=== PATIENT | female | born 1935 | race Caucasian/White ===

== ENCOUNTER 2016-08-14 11:35 | Emergency (ER) | payer MEDICARE, BC ==
--- NOTE | ~2016-08-14 | CT2 ---
[facility] A Service of [facility] RADIOLOGY TEXT RESULTS PATIENT: EMILY CARROLL LOCATION: [facility] : 34 UNIT #: [id number] AGE: [address]: Vianca Zuleta MD SEX: F ORDER DR: [id number] [facility] [address] [place], [place] [address] [id number] E MR#: [id number] Acc #: [id number] NAME: EMILY CARROLL. : 1935 SEX: F STUDY DATE/TIME: 08/14/2016 12:57 UNIT: [facility] ROOM: STUDY DESCRIPTION: CT Abd and Pelv W Cont Attending Physician: Vianca Zuleta M.D. Ordering Physician: Vianca Zuleta M.D. Primary Care Physician: Patrice Reinoso M.D. MEDICAL IMAGING REPORT This report is preliminary unless electronic signature is present EXAM CT abdomen and pelvis with contrast, 08/14/2016 INDICATIONS Fell at home. Head laceration. Nausea, vomiting, abdominal pain. TECHNIQUE CT of the abdomen and pelvis (utilizing 100 mL Isovue-370 IV contrast). Coronal and sagittal reconstructions were obtained. This CT exam was performed with one or more of the following radiation dose reduction techniques: Automatic exposure control, adjustment of mA and/or kV according to patient size, and iterative reconstruction. COMPARISON CT abdomen and pelvis dated 06/29/2011. FINDINGS ABDOMEN: There is a geographic area of hyperattenuation in the subcapsular region of the left hepatic lobe. This is predominantly in the lateral segment, left hepatic lobe. This likely represents a perfusional variant/shunt. No discrete mass is identified. Gallbladder is not distended. Pancreas is atrophic. The spleen, adrenal glands and kidneys are within normal limits. The bowel is not dilated. There is a small hiatal hernia. There are some colonic and small bowel diverticula. No diverticulitis. PELVIS: No pelvic mass. The bladder is unremarkable. No enlarged pelvic or inguinal lymph nodes. No acute osseous abnormalities. [facility] A Service of [facility] RADIOLOGY TEXT RESULTS PATIENT: EMILY CARROLL LOCATION: [facility] : 34 UNIT #: [id number] AGE: [address]: Vianca Zuleta MD SEX: F ORDER DR: IMPRESSION 1. No acute traumatic findings in the abdomen and pelvis. 2. Geographic area of hypervascularity in the left hepatic lobe. This is a psa-yvxh-uvud area which probably represents either some peripheral vascular shunting or transient hepatic attenuation difference (LETY). 3. Colonic diverticulosis and small bowel diverticulosis. Dictated by... Ramone Malik M.D. THIS IS AN ELECTRONICALLY VERIFIED REPORT Ramone Malik M.D. at 08/15/2016 2:13 PM RPC/lupe TD: 08/14/2016 19:25 JOB #: [id number] MEDICAL IMAGING REPORT Page 1 of 1 COPY
--- NOTE | ~2016-08-14 | CT52 ---
[facility] A Service of [facility] RADIOLOGY TEXT RESULTS PATIENT: EMILY CARROLL LOCATION: [facility] : 34 UNIT #: [id number] AGE: [address]: Vianca Zuleta MD SEX: F ORDER DR: [id number] [facility] [address] [place], [place] [address] [id number] E MR#: [id number] Acc #: [id number] NAME: EMILY CARROLL. : 1935 SEX: F STUDY DATE/TIME: 08/14/2016 12:49 UNIT: [facility] ROOM: STUDY DESCRIPTION: CT Cervical Spine Wo Cont Attending Physician: Vianca Zuleta M.D. Ordering Physician: Vianca Zuleta M.D. Primary Care Physician: Patrice Reinoso M.D. MEDICAL IMAGING REPORT This report is preliminary unless electronic signature is present EXAM CT cervical spine without contrast, 08/14/2016 INDICATIONS Fall at home. Laceration to the head. Neck pain. TECHNIQUE CT of the cervical spine without contrast. Coronal and sagittal reconstructions were obtained. This CT exam was performed with one or more of the following radiation dose reduction techniques: Automatic exposure control, adjustment of mA and/or kV according to patient size, and iterative reconstruction. COMPARISON CT cervical spine dated 03/27/2014. FINDINGS There is a oblique fracture through the base of the C2 vertebra. The fracture is nondisplaced. The fracture extends into the C2-3 intervertebral disc space. No additional fractures are identified. There is multilevel degenerative changes consisting of disc space narrowing, osteophyte formation, and facet arthropathy. There are a few anterior osteophytes associated with the C4 and C5 endplates, which are unchanged. IMPRESSION 1. Nondisplaced fracture through the base of the C2 vertebra extending into the C2-3 disc space. 2. Multilevel degenerative changes throughout the cervical spine. [facility] A Service of [facility] RADIOLOGY TEXT RESULTS PATIENT: EMILY CARROLL LOCATION: [facility] : 34 UNIT #: [id number] AGE: [address]: Vianca Zuleta MD SEX: F ORDER DR: Dictated by... Ramone Malik M.D. THIS IS AN ELECTRONICALLY VERIFIED REPORT Ramone Malik M.D. at 08/15/2016 2:13 PM RPC/psc TD: 08/14/2016 19:22 JOB #: [id number] MEDICAL IMAGING REPORT Page 1 of 1 COPY
--- NOTE | ~2016-08-14 | CR243 ---
[facility] A Service of [facility] RADIOLOGY TEXT RESULTS PATIENT: EMILY CARROLL LOCATION: [facility] : 34 UNIT #: [id number] AGE: [address]: Vianca Zuleta MD SEX: F ORDER DR: [id number] [facility] [address] [place], [place] [address] [id number] E MR#: [id number] Acc #: [id number] NAME: EMILY CARROLL. : 1935 SEX: F STUDY DATE/TIME: 08/14/2016 12:29 UNIT: [facility] ROOM: STUDY DESCRIPTION: CR Thoracic Spine 3 Views Attending Physician: Vianca Zuleta M.D. Ordering Physician: Vianca Zuleta M.D. Primary Care Physician: Patrice Reinoso M.D. MEDICAL IMAGING REPORT This report is preliminary unless electronic signature is present EXAM Thoracic spine radiographs INDICATIONS Fall. Back pain. TECHNIQUE/COMPARISON 3 views of the thoracic spine without comparison FINDINGS There is no acute fracture or subluxation. Vertebral body height is normal. There is mild dextroscoliosis. IMPRESSION No acute findings. Dictated by... Ramone Malik M.D. THIS IS AN ELECTRONICALLY VERIFIED REPORT Ramone Malik M.D. at 08/15/2016 2:09 PM [facility]/cindi TD: 08/14/2016 19:15 JOB #: [id number] MEDICAL IMAGING REPORT Page 1 of 1 COPY
--- NOTE | ~2016-08-14 | CT71 ---
[facility] A Service of [facility] RADIOLOGY TEXT RESULTS PATIENT: EMILY CARROLL LOCATION: [facility] : 34 UNIT #: [id number] AGE: [address]: Vianca Zuleta MD SEX: F ORDER DR: [id number] [facility] [address] [place] [address] [place], [place] [address] [id number] E MR#: [id number] Acc #: [id number] NAME: EMILY CARROLL. : 1935 SEX: F STUDY DATE/TIME: 08/14/2016 12:47 UNIT: [facility] ROOM: STUDY DESCRIPTION: CT Head Wo Contrast Attending Physician: Vianca Zuleta M.D. Ordering Physician: Vianca Zuleta M.D. Primary Care Physician: Patrice Reinoso M.D. MEDICAL IMAGING REPORT This report is preliminary unless electronic signature is present EXAM CT head INDICATIONS Fall at home. Laceration of the head. Headache. TECHNIQUE CT head without contrast. This CT exam was performed with one or more of the following radiation dose reduction techniques: automatic exposure control, adjustment of mA and/or kV according to patient size, and iterative reconstruction. COMPARISON CT head dated 03/27/2014 FINDINGS There is no acute intracranial hemorrhage, mass lesion, or acute infarct. Chong matter differentiation is within normal limits. The ventricles and basilar cisterns are normal in size and configuration. No extraaxial collections. There is a scalp hematoma over the frontal convexity. No foreign body or fracture is identified. There is irregularity of the nasal bones. This was present on the prior 2013 exam and is felt to represent changes from prior nasal bone fracture. Visualized paranasal sinuses and mastoid air cells are clear. IMPRESSION 1. No acute intracranial findings. 2. Scalp hematoma overlying the frontal convexity. 3. Irregularity of the nasal bones is felt represent chronic fracture, however I would recommend correlation with point tenderness in this [facility] A Service [facility] RADIOLOGY TEXT RESULTS PATIENT: EMILY CARROLL LOCATION: [facility] : 34 UNIT #: [id number] AGE: [address]: Vianca Zuleta MD SEX: F ORDER DR: region to confirm. Dictated by... Ramone Malik M.D. THIS IS AN ELECTRONICALLY VERIFIED REPORT Ramone Malik M.D. at 08/15/2016 2:13 PM RPC/to TD: 08/14/2016 19:22 JOB #: [id number] MEDICAL IMAGING REPORT Page 1 of 1 COPY
--- NOTE | ~2016-08-14 | CR72 ---
[facility] A Service of [facility] RADIOLOGY TEXT RESULTS PATIENT: EMILY CARROLL LOCATION: [facility] : 34 UNIT #: [id number] AGE: [address]: Vianca Zuleta MD SEX: F ORDER DR: [id number] [facility] [address] [place], [place] [address] [id number] E MR#: [id number] Acc #: [id number] NAME: EMILY CARROLL. : 1935 SEX: F STUDY DATE/TIME: 08/14/2016 12:27 UNIT: [facility] ROOM: STUDY DESCRIPTION: CR Chest Single View Portable Attending Physician: Vianca Zuleta M.D. Ordering Physician: Vianca Zuleta M.D. Primary Care Physician: Patrice Reinoso M.D. MEDICAL IMAGING REPORT This report is preliminary unless electronic signature is present EXAM Single view chest INDICATIONS Fall x1 day. Cough and congestion. Chest pain. TECHNIQUE/COMPARISON Single portable AP view of the chest without comparison FINDINGS The heart and mediastinal contours within normal limits. There is some chronic interstitial opacities in both lungs. No new pulmonary opacities. No pleural effusion. IMPRESSION No acute traumatic findings. Dictated by... Ramone Malik M.D. THIS IS AN ELECTRONICALLY VERIFIED REPORT Ramone Malik M.D. at 08/15/2016 2:09 PM [facility]/cindi TD: 08/14/2016 19:11 JOB #: [id number] MEDICAL IMAGING REPORT Page 1 of 1 COPY
[~2016-08-14 11:35] MED LIST: NAPROSYN500 MG PO
[2016-08-14 11:54] LABS: ALBUMIN SERUM 3.8 g/dL (3.5-5.0); BILIRUBIN, DIRECT 0.1 mg/dL (0.0-0.2); BILIRUBIN,INDIRECT 0.4 mg/dL (0.0-0.9); BILIRUBIN,TOTAL 0.5 mg/dL (0.2-2.0); BUN/CREATININE RATIO 26.66; CALCIUM SERUM 9.1 mg/dL (8.4-10.2); CREATININE SERUM 0.6 mg/dL (0.6-1.4); GLOM FILT RATE Estimated 84.9 mL/min (>60); POTASSIUM 3.9 mmol/L (3.5-5.1); PROTEIN TOTAL SERUM 7.1 g/dL (6.0-8.3)
[2016-08-14 12:56] LABS: BASOPHIL% 0.3 % (0-2.5); EOSINOPHIL% 0.3 % (0.0-7.0); HEMATOCRIT 37.2 % (35.0-45.0); HEMOGLOBIN 12.5 gm/dL (12.0-16.0); LYMPHOCYTE# 0.8 X10e3 (1.0-3.5); MEAN CELL VOLUME 95.4 FL (83-96); MEAN CORPUSCULAR HEMOGLOBIN 31.9 PG (28-34); MEAN CORPUSCULAR HGB CONC 33.4 g/dL (30-36); MEAN PLATELET VOLUME 8.2 FL (6.5-11.5); MONOCYTE# 0.7 X10e3 (0-1.0); MONOCYTE% 5.4 % (3.0-12.0); PLATELET COUNT 193 X10e3 (140-420); RED BLOOD COUNT 3.91 X10e (3.90-5.30); RED CELL DISTRIBUTION WIDTH 13.4 % (11.0-15.5); WHITE BLOOD COUNT 13.6 X10e3 (4.0-10.5)
[2016-08-14 12:57] LABS: DIFF IND NO
== END 2016-08-14 15:19 | disposition hospice, home (50) ==
LOC: CED 11:35
PROVIDERS: Emergency Medicine
DX: S12.101A Unspecified nondisplaced fracture of second cervical vertebra, initial encounter for closed fracture (principal); S01.81XA Laceration without foreign body of other part of head, initial encounter; E07.9 Disorder of thyroid, unspecified; Z86.79 Personal history of other diseases of the circulatory system; W01.0XXA Fall on same level from slipping, tripping and stumbling without subsequent striking against object, initial encounter; Y92.009 Unspecified place in unspecified non-institutional (private) residence as the place of occurrence of the external cause
CPT/HCPCS: 36415; 70450; 71010; 72072; 72125; 74177; 80048; 80076; 83690; 85025; 96374; 96376; 99285; J2270; J2405; Q9967